=== PATIENT | female | born 1955 | race Caucasian/White ===

== ENCOUNTER 2017-08-03 09:24 | Inpatient (IN) | payer OTHER ==
[~2017-08-03 09:24] MED LIST: PROPOFOL 200 MG INJ
[2017-08-03] MEDS ORDERED: MIDAZOLAM 1 MG/ML 2 ML INJ (12:09)
[2017-08-03] MEDS ORDERED: LIDOCAINE 100 MG SYRINGE ×2 (12:20→14:37)
[2017-08-03] MEDS ORDERED: ROCURONIUM 50 MG INJ (12:21)
[2017-08-03] MEDS: TRANEXAMIC ACID 1,000 MG in D5W 100 ML AT INCISION X1 IVPB (12:30)
[2017-08-03] MEDS: CEFAZOLIN 2 GM/50 ML (PMX) 50 ML (FOR WT < 120 KG) IVPB (12:35)
[2017-08-03] MEDS: BACITRACIN 50000 UNITS INJ (13:35)
[2017-08-03] MEDS: POLYMYXIN B 500000 UNIT INJ (13:36)
[2017-08-03] MEDS: TRANEXAMIC ACID 1,000 MG in D5W 100 ML AT CLOSURE X1 IVPB (14:30)
[2017-08-03] MEDS ORDERED: ETOMIDATE 20 MG INJ (14:37)
[2017-08-03] MEDS ORDERED: ROPIVACAINE 0.5 % 30 ML VIAL (14:38)
[2017-08-03] MEDS ORDERED: CEFAZOLIN 1 GM INJ (15:49)
[2017-08-03] MEDS ORDERED: ONDANSETRON 4 MG INJ (15:50)
[2017-08-03] MEDS ORDERED: MAGNESIUM HYDROXIDE 30ML CUP PO (16:00)
[2017-08-03] MEDS ORDERED: NA PHOSPHATE/BIPHOS 133 ML ENEMA PR (16:00)
[2017-08-03] MEDS ORDERED: BISACODYL 10 MG SUPP PR (16:00)
[2017-08-03] MEDS ORDERED: NALOXONE (0.4 MG/ML) INJ IV ×2 (16:00)
[2017-08-03] MEDS ORDERED: LABETALOL HCL 20MG INJ IV (16:00)
[2017-08-03] MEDS ORDERED: HYDROmorphONE (0.2 MG/ML) 10ML SYG IV (16:00)
[2017-08-03] MEDS ORDERED: oxyCODONE 5 MG TAB PO (16:00)
[2017-08-03] MEDS ORDERED: hydrALAzine 20 MG INJ IV (16:00)
[2017-08-03] MEDS ORDERED: ZOLPIDEM 5 MG TAB PO (16:00)
[2017-08-03] MEDS ORDERED: SENNA/DOCUSATE NA (8.6MG/50MG) TAB PO (16:00)
[2017-08-03] MEDS ORDERED: METOCLOPRAMIDE 10 MG INJ IV (16:00)
[2017-08-03] MEDS ORDERED: ASPIRIN (EC) 325 MG TAB PO (16:00)
[2017-08-03] MEDS ORDERED: DIPHENHYDRAMINE 50 MG INJ IM (16:00)
[2017-08-03] MEDS ORDERED: ONDANSETRON 4 MG INJ IV (16:00)
[2017-08-03] MEDS: CEFAZOLIN 1 GM/50 ML (PMX) 50 ML IVPB (16:04)
[2017-08-03] MEDS: ASPIRIN (EC) 325 MG TAB PO (16:05)
[2017-08-03] MEDS: DOCUSATE SODIUM 100 MG CAP PO (16:05)
[2017-08-03] MEDS: SOD CHLORIDE 0.9% 1,000 ML IV (16:06)
[2017-08-03] MEDS: ONDANSETRON 4 MG INJ IV ×2 (16:21→22:31)
[2017-08-03] MEDS: FENTAnyl 50 MCG/ML VIAL IV ×4 (16:52→18:14)
[2017-08-03] MEDS: HYDROmorphONE (0.2 MG/ML) 10ML SYG IV ×5 (16:52→19:08)
[2017-08-03] MEDS: KETOROLAC 15 MG INJ IV (18:57)
[2017-08-03] MEDS: DIPHENHYDRAMINE 50 MG INJ IV (19:59)
[2017-08-03] MEDS: CELECOXIB 100 MG CAP PO (21:20)
[2017-08-03] MEDS: GABAPENTIN 100 MG CAP PO (21:20)
[2017-08-03] MEDS: oxyCODONE 5 MG TAB PO (21:22)
[2017-08-03] MEDS: MEPERIDINE 25 MG INJ IV (22:30)
[2017-08-04] MEDS: CEFAZOLIN 1 GM/50 ML (PMX) 50 ML IVPB ×2 (01:01→08:33)
[2017-08-04] MEDS: KETOROLAC 15 MG INJ IV ×2 (01:05→13:04)
[2017-08-04] MEDS: oxyCODONE 5 MG TAB PO ×6 (03:00→22:17)
[2017-08-04] MEDS: SOD CHLORIDE 0.9% 1,000 ML IV ×2 (03:43→16:42)
[2017-08-04] MEDS: ONDANSETRON 4 MG INJ IV ×2 (04:35→10:00)
[2017-08-04] MEDS: DOCUSATE SODIUM 100 MG CAP PO ×2 (08:31→21:12)
[2017-08-04] MEDS: GABAPENTIN 100 MG CAP PO ×2 (08:32→21:12)
[2017-08-04] MEDS: ASPIRIN (EC) 325 MG TAB PO (08:32)
[2017-08-04] MEDS: FERROUS FUMARATE (SR) TAB PO ×2 (08:32→21:12)
[2017-08-04] MEDS: CELECOXIB 100 MG CAP PO ×2 (10:48→21:12)
[2017-08-04] MEDS: BETHANECHOL 25 MG TAB PO (10:48)
[2017-08-04 11:00] LABS: ADD MAN DIFF? NO
[2017-08-04 11:05] LABS: BASOPHILS % 0.3 % (0.0-2.0); EOSINOPHILS # 0.3 10^3/ul (0.0-0.5); EOSINOPHILS % 3.3 % (0.0-7.0); HEMATOCRIT 37.1 % (37.0-47.0); HEMOGLOBIN 11.7 g/dl (12.0-16.0); LYMPHOCYTES # 2.5 10^3/ul (0.8-2.9); LYMPHOCYTES % 27.9 % (15.0-51.0); MEAN CORPUSCULAR HEMOGLOBIN 28.4 pg (29.0-33.0); MEAN CORPUSCULAR HGB CONC 31.5 g/dl (32.0-37.0); MEAN PLATELET VOLUME 11.3 fl (7.4-10.4); MONOCYTE # 0.7 10^3/ul (0.3-0.9); MONOCYTES % 7.3 % (0.0-11.0); NEUTROPHIL # 5.4 10^3/ul (1.6-7.5); NEUTROPHILS % 61.1 % (39.0-77.0); PLATELET COUNT 174 10^3/UL (140-415); RED BLOOD COUNT 4.12 10^6/ul (4.20-5.40); RED CELL DISTRIBUTION WIDTH 14.8 % (11.5-14.5)
[2017-08-04 11:05] LABS: WHITE BLOOD COUNT 8.9 10^3/ul (4.8-10.8)
[2017-08-04 11:24] LABS: ANION GAP 14 (8-16); BLOOD UREA NITROGEN 9 mg/dl (7-20); CALCIUM 8.9 mg/dl (8.4-10.2); CARBON DIOXIDE 26 mmol/L (21-31); CHLORIDE 108 mmol/L (97-110); GLUCOSE 122 mg/dl (70-220); POTASSIUM 4.6 mmol/L (3.5-5.1); SODIUM 143 mmol/L (135-144)
[2017-08-05] MEDS: oxyCODONE 5 MG TAB PO ×2 (02:26→08:45)
[2017-08-05] MEDS: ACETAMINOPHEN 325 MG TAB PO (02:44)
[2017-08-05] MEDS: SOD CHLORIDE 0.9% 1,000 ML IV ×5 (04:32→23:00)
[2017-08-05] MEDS: PANTOPRAZOLE (EC) 40 MG TAB PO (05:34)
[2017-08-05] MEDS: GABAPENTIN 100 MG CAP PO ×2 (08:44→21:23)
[2017-08-05] MEDS: DOCUSATE SODIUM 100 MG CAP PO ×2 (08:44→21:23)
[2017-08-05] MEDS: FERROUS FUMARATE (SR) TAB PO ×2 (08:44→21:23)
[2017-08-05] MEDS: ASPIRIN (EC) 325 MG TAB PO (08:44)
[2017-08-05] MEDS: CELECOXIB 100 MG CAP PO ×2 (08:45→21:23)
[2017-08-05] MEDS: CALCIUM CARBONATE 500 MG CHEW TAB PO (11:32)
[2017-08-05 11:44] LABS: ADD MAN DIFF? NO
[2017-08-05 11:49] LABS: WHITE BLOOD COUNT 8.7 10^3/ul (4.8-10.8)
[2017-08-05 11:49] LABS: BASOPHILS % 0.2 % (0.0-2.0); EOSINOPHILS # 0.3 10^3/ul (0.0-0.5); EOSINOPHILS % 3.1 % (0.0-7.0); HEMATOCRIT 36.5 % (37.0-47.0); HEMOGLOBIN 11.3 g/dl (12.0-16.0); LYMPHOCYTES # 2.2 10^3/ul (0.8-2.9); LYMPHOCYTES % 25.3 % (15.0-51.0); MEAN CORPUSCULAR HEMOGLOBIN 28.6 pg (29.0-33.0); MEAN CORPUSCULAR VOLUME 92.4 fl (82.0-101.0); MEAN PLATELET VOLUME 11.4 fl (7.4-10.4); MONOCYTE # 0.7 10^3/ul (0.3-0.9); MONOCYTES % 8.5 % (0.0-11.0); NEUTROPHIL # 5.5 10^3/ul (1.6-7.5); NEUTROPHILS % 62.6 % (39.0-77.0); PLATELET COUNT 155 10^3/UL (140-415); RED BLOOD COUNT 3.95 10^6/ul (4.20-5.40); RED CELL DISTRIBUTION WIDTH 14.4 % (11.5-14.5)
[2017-08-05 12:14] LABS: ANION GAP 15 (8-16); BLOOD UREA NITROGEN 7 mg/dl (7-20); CALCIUM 8.6 mg/dl (8.4-10.2); CARBON DIOXIDE 25 mmol/L (21-31); CHLORIDE 105 mmol/L (97-110); CREATININE 0.62 mg/dl (0.44-1.00); GLUCOSE 101 mg/dl (70-220); POTASSIUM 4.4 mmol/L (3.5-5.1); SODIUM 141 mmol/L (135-144)
[2017-08-05] MEDS: KETOROLAC 15 MG INJ IV (13:28)
[2017-08-05] MEDS ORDERED: METOCLOPRAMIDE 10 MG INJ IV (16:00)
[2017-08-05] MEDS ORDERED: ONDANSETRON 4 MG INJ IV (16:00)
[2017-08-05] MEDS: POLYETHYLENE GLYCOL 17 GM PACKET PO (18:06)
[2017-08-05 18:35] LABS: ADD UMIC NO; UR ASCORBIC ACID 40 mg/dL (NEGATIVE); UR BILIRUBIN (Dip) NEGATIVE (NEGATIVE); UR BLOOD (Dip) NEGATIVE (NEGATIVE); UR CLARITY CLEAR (CLEAR); UR COLOR YELLOW (YELLOW); UR GLUCOSE (Dip) NEGATIVE (NEGATIVE); UR KETONES (Dip) 1+ mg/dL (NEGATIVE); UR LEUKOCYTE ESTERASE (Dip) NEGATIVE Leu/ul (NEGATIVE); UR NITRITE (Dip) NEGATIVE (NEGATIVE); UR SPECIFIC GRAVITY (Dip) 1.023 (1.003-1.030); UR TOTAL PROTEIN (Dip) NEGATIVE (NEGATIVE); UR UROBILINOGEN (Dip) NEGATIVE (NEGATIVE)
[2017-08-06] MEDS: CALCIUM CARBONATE 500 MG CHEW TAB PO (02:49)
[2017-08-06 05:04] LABS: ADD MAN DIFF? NO
[2017-08-06 05:08] LABS: WHITE BLOOD COUNT 8.8 10^3/ul (4.8-10.8)
[2017-08-06 05:08] LABS: BASOPHILS % 0.1 % (0.0-2.0); EOSINOPHILS # 0.2 10^3/ul (0.0-0.5); EOSINOPHILS % 2.7 % (0.0-7.0); HEMATOCRIT 32.4 % (37.0-47.0); HEMOGLOBIN 10.3 g/dl (12.0-16.0); LYMPHOCYTES # 2.1 10^3/ul (0.8-2.9); LYMPHOCYTES % 23.9 % (15.0-51.0); MEAN CORPUSCULAR HEMOGLOBIN 28.4 pg (29.0-33.0); MEAN CORPUSCULAR HGB CONC 31.8 g/dl (32.0-37.0); MEAN CORPUSCULAR VOLUME 89.3 fl (82.0-101.0); MEAN PLATELET VOLUME 11.5 fl (7.4-10.4); MONOCYTE # 0.7 10^3/ul (0.3-0.9); NEUTROPHIL # 5.7 10^3/ul (1.6-7.5); PLATELET COUNT 149 10^3/UL (140-415); RED BLOOD COUNT 3.63 10^6/ul (4.20-5.40); RED CELL DISTRIBUTION WIDTH 14.4 % (11.5-14.5)
[2017-08-06 05:43] LABS: ANION GAP 11 (8-16); BLOOD UREA NITROGEN 7 mg/dl (7-20); CALCIUM 8.6 mg/dl (8.4-10.2); CARBON DIOXIDE 27 mmol/L (21-31); CHLORIDE 104 mmol/L (97-110); CREATININE 0.56 mg/dl (0.44-1.00); GLUCOSE 112 mg/dl (70-220); POTASSIUM 3.6 mmol/L (3.5-5.1); SODIUM 138 mmol/L (135-144)
[2017-08-06] MEDS: PANTOPRAZOLE (EC) 40 MG TAB PO (05:50)
[2017-08-06] MEDS: KETOROLAC 15 MG INJ IV ×2 (05:50→18:50)
[2017-08-06] MEDS: SOD CHLORIDE 0.9% 1,000 ML IV ×5 (06:12→23:00)
[2017-08-06] MEDS: GABAPENTIN 100 MG CAP PO ×2 (08:45→20:35)
[2017-08-06] MEDS: ASPIRIN (EC) 325 MG TAB PO (08:45)
[2017-08-06] MEDS: CELECOXIB 100 MG CAP PO ×2 (08:45→20:35)
[2017-08-06] MEDS: FERROUS FUMARATE (SR) TAB PO ×2 (08:46→20:34)
[2017-08-06] MEDS: POLYETHYLENE GLYCOL 17 GM PACKET PO (08:46)
[2017-08-06] MEDS: DOCUSATE SODIUM 100 MG CAP PO ×2 (08:46→20:35)
[2017-08-06] MEDS: BETHANECHOL 25 MG TAB PO ×2 (10:39→20:35)
[2017-08-06] MEDS: TAMSULOSIN (SR) 0.4 MG CAP PO ×2 (14:12→20:35)
[2017-08-06] MEDS: HYDROCODONE/APAP (7.5/325) TAB PO (20:34)
[2017-08-07] MEDS: PANTOPRAZOLE (EC) 40 MG TAB PO (06:48)
[2017-08-07] MEDS: POLYETHYLENE GLYCOL 17 GM PACKET PO (09:00)
[2017-08-07] MEDS: ASPIRIN (EC) 325 MG TAB PO (09:56)
[2017-08-07] MEDS: GABAPENTIN 100 MG CAP PO ×2 (09:56→21:33)
[2017-08-07] MEDS: BETHANECHOL 25 MG TAB PO ×3 (09:56→21:33)
[2017-08-07] MEDS: HYDROCODONE/APAP (7.5/325) TAB PO ×2 (09:56→21:33)
[2017-08-07] MEDS: FERROUS FUMARATE (SR) TAB PO ×2 (09:56→21:33)
[2017-08-07] MEDS: CELECOXIB 100 MG CAP PO ×2 (09:57→21:33)
[2017-08-07 14:01] LABS: ADD MAN DIFF? NO
[2017-08-07 14:06] LABS: BASOPHILS % 0.2 % (0.0-2.0); EOSINOPHILS # 0.4 10^3/ul (0.0-0.5); EOSINOPHILS % 4.7 % (0.0-7.0); HEMATOCRIT 32.5 % (37.0-47.0); HEMOGLOBIN 10.6 g/dl (12.0-16.0); LYMPHOCYTES % 22.9 % (15.0-51.0); MEAN CORPUSCULAR HEMOGLOBIN 28.7 pg (29.0-33.0); MEAN CORPUSCULAR HGB CONC 32.6 g/dl (32.0-37.0); MEAN CORPUSCULAR VOLUME 88.1 fl (82.0-101.0); MONOCYTE # 0.6 10^3/ul (0.3-0.9); NEUTROPHIL # 5.6 10^3/ul (1.6-7.5); PLATELET COUNT 192 10^3/UL (140-415); RED BLOOD COUNT 3.69 10^6/ul (4.20-5.40); RED CELL DISTRIBUTION WIDTH 14.5 % (11.5-14.5)
[2017-08-07 14:06] LABS: WHITE BLOOD COUNT 8.6 10^3/ul (4.8-10.8)
[2017-08-07 14:25] LABS: ANION GAP 12 (8-16); BLOOD UREA NITROGEN 7 mg/dl (7-20); CALCIUM 8.3 mg/dl (8.4-10.2); CARBON DIOXIDE 29 mmol/L (21-31); CHLORIDE 104 mmol/L (97-110); CREATININE 0.53 mg/dl (0.44-1.00); GLUCOSE 190 mg/dl (70-220); POTASSIUM 4.1 mmol/L (3.5-5.1); SODIUM 141 mmol/L (135-144)
[2017-08-07] MEDS: KETOROLAC 15 MG INJ IV ×2 (14:52→21:33)
[2017-08-07] MEDS: TAMSULOSIN (SR) 0.4 MG CAP PO (21:33)
[2017-08-08] MEDS: HYDROCODONE/APAP (7.5/325) TAB PO ×3 (05:16→17:17)
[2017-08-08] MEDS: PANTOPRAZOLE (EC) 40 MG TAB PO (05:18)
[2017-08-08] MEDS: ASPIRIN (EC) 325 MG TAB PO (08:43)
[2017-08-08] MEDS: CELECOXIB 100 MG CAP PO (08:43)
[2017-08-08] MEDS: FERROUS FUMARATE (SR) TAB PO (08:43)
[2017-08-08] MEDS: POLYETHYLENE GLYCOL 17 GM PACKET PO (08:44)
[2017-08-08] MEDS: GABAPENTIN 100 MG CAP PO (08:44)
[2017-08-08] MEDS: BETHANECHOL 25 MG TAB PO ×2 (08:44→13:38)
[2017-08-08 10:31] LABS: ADD MAN DIFF? NO
[2017-08-08 10:37] LABS: BASOPHILS % 0.1 % (0.0-2.0); EOSINOPHILS # 0.5 10^3/ul (0.0-0.5); EOSINOPHILS % 5.6 % (0.0-7.0); HEMATOCRIT 33.5 % (37.0-47.0); HEMOGLOBIN 10.9 g/dl (12.0-16.0); LYMPHOCYTES # 2.5 10^3/ul (0.8-2.9); LYMPHOCYTES % 29.7 % (15.0-51.0); MEAN CORPUSCULAR HEMOGLOBIN 28.7 pg (29.0-33.0); MEAN CORPUSCULAR HGB CONC 32.5 g/dl (32.0-37.0); MEAN CORPUSCULAR VOLUME 88.2 fl (82.0-101.0); MONOCYTE # 0.6 10^3/ul (0.3-0.9); NEUTROPHIL # 4.9 10^3/ul (1.6-7.5); NEUTROPHILS % 57.4 % (39.0-77.0); PLATELET COUNT 213 10^3/UL (140-415); RED CELL DISTRIBUTION WIDTH 14.5 % (11.5-14.5)
[2017-08-08 10:37] LABS: WHITE BLOOD COUNT 8.5 10^3/ul (4.8-10.8)
[2017-08-08 10:53] LABS: ANION GAP 12 (8-16); BLOOD UREA NITROGEN 8 mg/dl (7-20); CALCIUM 8.7 mg/dl (8.4-10.2); CARBON DIOXIDE 27 mmol/L (21-31); CHLORIDE 106 mmol/L (97-110); CREATININE 0.55 mg/dl (0.44-1.00); GLUCOSE 149 mg/dl (70-220); POTASSIUM 3.8 mmol/L (3.5-5.1); SODIUM 141 mmol/L (135-144)
== END 2017-08-08 17:25 | DRG 470 ==
LOC: REC 09:24 → MS1 08-04 00:45
PROVIDERS: Orthopaedic Surgery
PROC: 0SRD0J9 Replacement of Left Knee Joint with Synthetic Substitute, Cemented, Open Approach (ICD-10-PCS; principal; 2017-08-03 11:30)
DX: M17.12 Unilateral primary osteoarthritis, left knee (principal); I10 Essential (primary) hypertension; E11.9 Type 2 diabetes mellitus without complications; R33.9 Retention of urine, unspecified; E78.5 Hyperlipidemia, unspecified; E66.9 Obesity, unspecified; Z68.36 Body mass index [BMI] 36.0-36.9, adult
CPT/HCPCS: 73560; 76775; 80048; 81003; 82962; 85025; 86850; 86900; 86901; 87081; 88304; 88311; 93970; 97110; 97116; 97163; 97530